=== PATIENT | male | born 1980 | race Caucasian/White ===

== ENCOUNTER 2023-04-19 10:50 | Emergency (ER) | payer OTHER, SELFPAY ==
[2023-04-19 11:06] VITALS: BP 155/92; PULSE 75; RESP 16; TEMP 36.4; O2SAT 98
--- NOTE | 2023-04-19 11:35 | ED.GENADULT ---
HPI - General Adult General Chief complaint: Urogenital-Male Stated complaint: STD Test Source: patient and RN notes reviewed History of Present Illness HPI narrative: 42 yo M presents to urgent care, stating his recent sexual partner tested + for gonorrhea. Pt states he does not have any penile drainage, urinary burning, tingling, or suspicious rash/blisters/lesions. Pt denies any fevers, chills, vomiting, or abdominal pain. Related Data Home Medications Medication Instructions Recorded Confirmed No Home Medications 04/19/23 04/19/23 Allergies Allergy/AdvReac Type Severity Reaction Status Date / Time No Known Allergies Allergy Verified 04/19/23 11:04 Review of Systems Review of Systems: Pertinent positives and pertinent negatives per HPI. PMFSH Comments At the time of my signature, I reviewed and agree with the nursing past medical, surgical, social, and family history. There is no relevant family history pertinent to the patient complaint. Exam Narrative: GENERAL: This is a well-nourished, well-developed patient, in no apparent distress. HEAD: normocephalic, atraumatic. EYES: Sclera clear/white. Vision is grossly intact. EARS: External ears normal, auditory canals clear and without drainage, TMs normal without perforation. Hearing grossly intact. NOSE: External nose normal with no obvious nasal discharge, nares without redness, no rhinorrhea. THROAT: Mucous membranes moist, posterior pharynx clear. NECK: Neck supple, non-tender without lymphadenopathy, masses or thyromegaly. CARDIOVASCULAR: Regular rate and rhythm without murmurs, gallops, or rubs. RESPIRATORY: Clear to auscultation. Breath sounds equal bilaterally. No wheezes, rales, or rhonchi. GASTROINTESTINAL: Abdomen soft, non-tender, nondistended. Bowel sounds are active. No hepato-splenomegaly, or palpable masses. No guarding. SKIN: warm, intact with no suspicious lesions or rash, good texture and turgor. NEURO: awake, alert, and oriented to person, place and time. There were no obvious focal neurologic abnormalities. EXTREMITIES: No clubbing, cyanosis, or edema. No joint tenderness, effusion, or edema noted. BACK: Nontender without deformity or crepitus. No flank tenderness. Course Course Level of Care: Express Care Visit Vital Signs Vital signs: Vital Signs Temperature 97.6 F 04/19/23 11:06 Pulse Rate 75 07/03/23 11:06 Respiratory Rate 16 04/19/23 11:06 Blood Pressure 155/92 H 04/19/23 11:06 Pulse Oximetry 98 04/19/23 11:06 Oxygen Delivery Room Air 04/19/23 11:06 Temperature 97.6 F 04/19/23 11:06 Pulse Rate 75 04/19/23 11:06 Respiratory Rate 16 04/19/23 11:06 Blood Pressure 155/92 H 04/19/23 11:06 Pulse Oximetry 98 04/19/23 11:06 Oxygen Delivery Room Air 04/19/23 11:06 Reviewed Medical Decision Making MDM Narrative Medical decision making narrative: Pt was advised to inform any other recent sexual partners that he is being treated for possible gonorrhea and recommend testing. Differential Diagnosis Differential Diagnosis: STI, possible exposure to STI, well pt exam Vital Signs Vital Signs: Vital Signs Temperature 97.6 F 04/19/23 11:06 Pulse Rate 75 04/19/23 11:06 Respiratory Rate 16 04/19/23 11:06 Blood Pressure 155/92 H 04/19/23 11:06 Pulse Oximetry 98 04/19/23 11:06 Oxygen Delivery Room Air 04/19/23 11:06 Temperature 97.6 F 04/19/23 11:06 Pulse Rate 75 04/19/23 11:06 Respiratory Rate 16 04/19/23 11:06 Blood Pressure 155/92 H 04/19/23 11:06 Pulse Oximetry 98 04/19/23 11:06 Oxygen Delivery Room Air 04/19/23 11:06 Critical Care Time Critical Care Time Critical Care Time: No Discharge Plan Discharge Clinical Impression: Possible exposure to STD Patient Disposition: Home, Self-Care Condition: Stable Instructions: Antibiotic Form, Safe Sex Practices (ED), Gonorrhea (ED) Prescriptions: No Action No Home Medicati
[2023-04-19] MEDS: cefTRIAXone 1 GM, LIDOCAINE HCL 1% LOCAL INJ 2.1 ML IM (11:42)
== END 2023-04-19 12:04 | disposition home or self-care (01) ==
PROVIDERS: Emergency Provider Nurse Practitioner Family
DX: Z11.3 Encounter for screening for infections with a predominantly sexual mode of transmission (principal)
CPT/HCPCS: 96372; 99213; G0463; J0696